=== PATIENT | male | born 1990 | race African-American/Black ===

== ENCOUNTER 2020-09-22 16:07 | Emergency (ER) | payer SELFPAY ==
[~2020-09-22] VITALS: Ht 185.4 cm; Wt 79.4 kg
[2020-09-22 16:07] VITALS: BP 116/61
[2020-09-22] MEDS ORDERED: CYCL10TA9 PO (16:59)
[2020-09-22] MEDS ORDERED: NAPR-1164 PO (16:59)
[2020-09-22] MEDS ORDERED: KETOROLAC TROMETHAMINE INJ 60 MG/2 ML VIAL IM ONE ×2 (16:59→17:00)
--- NOTE | 2020-09-22 17:05 | NUR ---
Patient discharged to home in stable condition. Written and verbal after care instructions given. Patient verbalizes understanding of instruction.
== END 2020-09-22 17:12 | disposition home or self-care (01) ==
LOC: ER 16:12
DX: M79.18 Myalgia, other site (principal); V49.59XA Passenger injured in collision with other motor vehicles in traffic accident, initial encounter; Y93.89 Activity, other specified; Y92.488 Other paved roadways as the place of occurrence of the external cause; Y99.8 Other external cause status
CPT/HCPCS: 96372; 99283; J1885